=== PATIENT | female | born 1995 | race Caucasian/White ===

== ENCOUNTER 2020-11-10 10:22 | Inpatient (IN) ==
[2020-11-10] MEDS ORDERED: *HR* Nalbuphine 10 MG/ML AMPUL IV PRN (10:39)
[2020-11-10] MEDS ORDERED: Famotidine 20 MG/2 ML VIAL IVP PRN (10:39)
[2020-11-10] MEDS ORDERED: Ondansetron 4 MG/2 ML VIAL IVP PRN (10:39)
[2020-11-10] MEDS ORDERED: Azithromycin 500 MG in 0.9 % Sodium Chloride 250 ML IVPB PRN (10:39)
[2020-11-10] MEDS ORDERED: Metoclopramide 10 MG/2 ML VIAL IVP PRN (10:39)
[2020-11-10] MEDS ORDERED: Naloxone 0.4 MG/ML INJ IVP PRN (10:39)
[2020-11-10] MEDS ORDERED: Lidocaine 1% 20 ML MDV ID PRN (10:39)
[2020-11-10] MEDS ORDERED: Ringers Solution, Lactated 1,000 ML ONE (10:43)
[2020-11-10] MEDS ORDERED: Oxytocin 20 units/ LR 1000 mL 20 UNIT/1,000 ML BAG IVC ONE (10:43)
[2020-11-10] MEDS ORDERED: Ringers Solution, Lactated 1,000 ML IVC SCH (10:45)
[2020-11-10] MEDS ORDERED: Ropivacaine/PF 0.2% 20 ML VIAL EP ONE (10:47)
[2020-11-10] MEDS ORDERED: EPHEDrine 50 MG/ML VIAL IVP PRN (10:47)
[2020-11-10] MEDS ORDERED: *HR* FentaNYL (PF) 100 MCG/2 ML VIAL EP ONE (10:47)
[2020-11-10] MEDS ORDERED: Epidural Premix (fent/bupiv) 110 ML EP SCH (11:00)
[2020-11-10 11:04] LABS: Basophils # 0.1 K/mcL (0.0-0.2); Basophils % 0.5 %; Eosinophils # 0.1 K/mcL (0.0-0.6); Eosinophils % 0.6 %; Hematocrit 37.3 % (35.3-44.9); Hemoglobin 12.8 g/dL (11.5-15.4); Immature Granulocytes % 2.2 % (0-4); Lymphocytes # 1.6 K/mcL (0.6-4.6); Lymphocytes % 12.8 %; Mean Corpuscular HGB Conc 34.3 g/dL (31.6-35.5); Mean Corpuscular Hemoglobin 31.6 pg (28.0-33.3); Mean Corpuscular Volume 92.1 fL (83.0-100.0); Monocytes % 7.9 %; Neutrophils # 9.7 K/mcL (1.6-8.9); Platelet Count 200 K/mcL (140-400); Red Blood Count 4.05 M/mcL (3.82-4.97); Red Cell Distribution Width 12.7 % (11.5-14.5); White Blood Count 12.8 K/mcL (4.3-11.1)
[2020-11-10 11:12] LABS: Amphetamine Screen,Urine Negative ng/mL (Cutoff=1000); Barbiturate Screen,Urine Negative ng/mL (Cutoff=200); Benzodiazepines Screen,Urine Negative ng/mL (Cutoff=200); Cannabinoid Screen,Urine Negative ng/mL (Cutoff = 50); Cocaine Screen,Urine Negative ng/mL (Cutoff= 300); Opiate Screen,Urine Negative ng/mL (Cutoff=300); Phencyclidine Screen,Urine Negative ng/mL (Cutoff=25)
[2020-11-10] MEDS ORDERED: Bupivacaine-MPF 0.25% 10 ML VIAL ONE (11:12)
[2020-11-10] MEDS ORDERED: Ropivacaine/PF 0.2% 20 ML VIAL ONE (11:12)
[2020-11-10] MEDS ORDERED: *HR* FentaNYL (PF) 100 MCG/2 ML VIAL ONE (11:12)
[2020-11-10 11:49] LABS: Influenza A PCR Negative (Negative); Influenza B PCR Negative (Negative); Resp. Syncytial Virus PCR Negative (Negative); SARS-CoV-2 by PCR (In House) Negative (Negative)
[2020-11-10] MEDS ORDERED: Ondansetron ODT 4 MG TAB.RAPDIS SL PRN (17:13)
[2020-11-10] MEDS ORDERED: Lanolin 7 G OINT...G. TP PRN (17:13)
[2020-11-10] MEDS ORDERED: Benzocaine/Menthol 56 GM AEROSOL SPRAY TP PRN (17:13)
[2020-11-10] MEDS ORDERED: Acetaminophen 325 MG TABLET PO SCH (17:13)
[2020-11-10] MEDS ORDERED: Measles/Mumps/Rubella Vacc 0.5 ML VIAL SQ PRN (17:13)
[2020-11-10] MEDS ORDERED: Rho Immune Globulin 1,500 UNIT SYRINGE IM PRN (17:13)
[2020-11-10] MEDS ORDERED: Oxytocin 20 units/ LR 1000 mL 20 UNIT/1,000 ML BAG IVC SCH (17:13)
[2020-11-10] MEDS: Ibuprofen 600 MG TABLET PO SCH (20:52)
[2020-11-11] MEDS: Ibuprofen 600 MG TABLET PO SCH ×2 (03:07→09:31)
[2020-11-11 04:02] VITALS: O2SAT 98
[2020-11-11 06:00] LABS: Basophils # 0.1 K/mcL (0.0-0.2); Basophils % 0.3 %; Eosinophils # 0.1 K/mcL (0.0-0.6); Eosinophils % 0.7 %; Hematocrit 32.8 % (35.3-44.9); Hemoglobin 11.3 g/dL (11.5-15.4); Immature Granulocytes % 1.5 % (0-4); Lymphocytes # 2.5 K/mcL (0.6-4.6); Lymphocytes % 16.6 %; Mean Corpuscular HGB Conc 34.5 g/dL (31.6-35.5); Mean Corpuscular Hemoglobin 31.7 pg (28.0-33.3); Mean Corpuscular Volume 91.9 fL (83.0-100.0); Mean Platelet Volume 11.1 fL (9.4-12.4); Monocytes # 1.2 K/mcL (0.0-1.3); Monocytes % 7.8 %; Platelet Count 163 K/mcL (140-400); Red Blood Count 3.57 M/mcL (3.82-4.97); Red Cell Distribution Width 12.7 % (11.5-14.5); Segmented Neutrophils % 73.1 %
[2020-11-11 08:42] VITALS: BP 104/63; PULSE 83; TEMP 98.2
[2020-11-11] MEDS ORDERED: Prenatal Vit/FA 1 EACH TABLET PO SCH (09:00)
== END 2020-11-11 16:53 | disposition home or self-care (01) | DRG 560 ==
LOC: 1NENULAB → 1NENUOBS 16:59
PROVIDERS: ADMIT Advanced Practice Midwife; ATTEND Advanced Practice Midwife

== ENCOUNTER 2021-02-18 20:17 | Observation (INO) ==
[2021-02-18 21:02] LABS: Bilirubin,Urine Negative (Negative); Blood,Urine Trace (Negative); Clarity,Urine Clear (Clear); Color,Urine Light-Yellow (Yellow); Glucose,Urine (UA) Normal (Normal); Ketones,Urine Trace mg/dL (Negative); Leukocyte Esterase,Urine Negative (Negative); Mucus,Urine Few per lpf (None-Few); Nitrite,Urine Negative (Negative); Protein,Urine Trace mg/dL (Neg-Trace); Specific Gravity,Urine 1.022 (1.010-1.025); Squamous Epithelial Cell,Urine Few per hpf (None-Few); Urobilinogen,Urine Normal (Normal); WBC,Urine 0-3 per hpf (0-3)
[2021-02-18 21:06] LABS: Basophils # 0.1 K/mcL (0.0-0.2); Basophils % 0.6 %; Eosinophils # 0.2 K/mcL (0.0-0.6); Eosinophils % 1.3 %; Hematocrit 41.8 % (35.3-44.9); Hemoglobin 13.9 g/dL (11.5-15.4); Immature Granulocytes % 0.3 % (0-4); Lymphocytes # 1.8 K/mcL (0.6-4.6); Lymphocytes % 14.7 %; Mean Corpuscular HGB Conc 33.3 g/dL (31.6-35.5); Mean Corpuscular Hemoglobin 30.4 pg (28.0-33.3); Mean Corpuscular Volume 91.5 fL (83.0-100.0); Mean Platelet Volume 9.5 fL (9.4-12.4); Monocytes # 0.6 K/mcL (0.0-1.3); Monocytes % 5.1 %; Neutrophils # 9.4 K/mcL (1.6-8.9); Platelet Count 336 K/mcL (140-400); Red Blood Count 4.57 M/mcL (3.82-4.97); Red Cell Distribution Width 12.4 % (11.5-14.5)
[2021-02-18] MEDS ORDERED: Isovue-370 500 ML BOTTLE IVP ONE (21:19)
[2021-02-18] MEDS ORDERED: 0.9 % Sodium Chloride 1,000 ML IV ONE (21:19)
[2021-02-18] MEDS ORDERED: Ondansetron 4 MG/2 ML VIAL IVP ONE (21:19)
[2021-02-18 21:45] LABS: Alanine Aminotransferase 8 Units/L (7-52); Albumin 4.1 g/dL (3.5-5.7); Albumin/Globulin Ratio 1.2 (1.1-2.2); Alkaline Phosphatase 39 Units/L (34-104); Amylase 31 Units/L (29-103); Aspartate Amino Transferase 13 Units/L (13-39); BUN/Creatinine Ratio 15 (6-26); Bilirubin,Direct 0.1 mg/dL (0.0-0.2); Bilirubin,Indirect 0.5 mg/dL (0.0-1.0); Bilirubin,Total 0.6 mg/dL (0.3-1.0); Blood Urea Nitrogen 10 mg/dL (6-20); Carbon Dioxide 23 mEq/L (23-29); Chloride 108 mEq/L (98-107); Globulin 3.3 g/dL (2.4-3.5); Glucose 96 mg/dL (70-105); Lipase 21 Units/L (11-82); Osmolality,Calculated 277 (280-300); Potassium 3.6 mEq/L (3.5-5.1); Sodium 134 mEq/L (136-145); Total Protein 7.4 g/dL (6.4-8.9); eGFR For African Americans > 60 (> 60); eGFR For Non-African Americans > 60 (> 60)
[2021-02-18] MEDS ORDERED: Piperacillin/Tazobactam 3.375 GM in 0.9 % Sodium Chloride Mini Bag 100 ML IVP ONE (22:52)
[2021-02-18] MEDS ORDERED: Morphine Sulfate 2 MG/ML SYRINGE IVP ONE (22:52)
[2021-02-19 00:09] LABS: Influenza A PCR Negative (Negative); Influenza B PCR Negative (Negative); Resp. Syncytial Virus PCR Negative (Negative)
[2021-02-19 00:14] LABS: SARS-CoV-2 by PCR (In House) Negative (Negative)
[2021-02-19] MEDS ORDERED: Ondansetron 4 MG/2 ML VIAL IVP PRN ×2 (00:58→10:36)
[2021-02-19] MEDS ORDERED: *HR* OxyCODONE/APAP 5/325 TABLET PO PRN ×2 (00:58→10:36)
[2021-02-19] MEDS ORDERED: 0.9 % Sodium Chloride 1,000 ML IVC SCH ×2 (00:58→10:36)
[2021-02-19] MEDS: cefOXitin 2,000 MG in 0.9 % Sodium Chloride Mini Bag 100 ML IVPB SCH ×2 (02:01→07:34)
[2021-02-19 03:07] LABS: Basophils # 0.1 K/mcL (0.0-0.2); Basophils % 0.6 %; Eosinophils # 0.1 K/mcL (0.0-0.6); Hematocrit 39.8 % (35.3-44.9); Hemoglobin 12.9 g/dL (11.5-15.4); Immature Granulocytes % 0.2 % (0-4); Lymphocytes # 2.5 K/mcL (0.6-4.6); Mean Corpuscular HGB Conc 32.4 g/dL (31.6-35.5); Mean Corpuscular Hemoglobin 29.6 pg (28.0-33.3); Mean Corpuscular Volume 91.3 fL (83.0-100.0); Mean Platelet Volume 9.6 fL (9.4-12.4); Monocytes # 0.7 K/mcL (0.0-1.3); Monocytes % 6.1 %; Neutrophils # 7.4 K/mcL (1.6-8.9); Platelet Count 272 K/mcL (140-400); Red Blood Count 4.36 M/mcL (3.82-4.97); Red Cell Distribution Width 12.4 % (11.5-14.5); Segmented Neutrophils % 69.1 %; White Blood Count 10.7 K/mcL (4.3-11.1)
[2021-02-19 03:25] LABS: Alanine Aminotransferase 6 Units/L (7-52); Albumin 3.5 g/dL (3.5-5.7); Albumin/Globulin Ratio 1.2 (1.1-2.2); Alkaline Phosphatase 27 Units/L (34-104); Aspartate Amino Transferase 12 Units/L (13-39); BUN/Creatinine Ratio 12 (6-26); Bilirubin,Direct 0.2 mg/dL (0.0-0.2); Bilirubin,Indirect 0.8 mg/dL (0.0-1.0); Blood Urea Nitrogen 8 mg/dL (6-20); Calcium 8.1 mg/dL (8.6-10.3); Carbon Dioxide 19 mEq/L (23-29); Chloride 108 mEq/L (98-107); Glucose 93 mg/dL (70-105); Osmolality,Calculated 282 (280-300); Potassium 3.6 mEq/L (3.5-5.1); Sodium 137 mEq/L (136-145); Total Protein 6.5 g/dL (6.4-8.9); eGFR For African Americans > 60 (> 60); eGFR For Non-African Americans > 60 (> 60)
[2021-02-19] MEDS ORDERED: *HR* HYDROmorphone PF 0.5 MG/0.5 ML SYRINGE IVP PRN (08:19)
[2021-02-19] MEDS ORDERED: *HR* Propofol 200 MG/20 ML VIAL IVP ONE (08:32)
[2021-02-19] MEDS ORDERED: *HR* FentaNYL (PF) 100 MCG/2 ML VIAL ONE (08:32)
[2021-02-19] MEDS ORDERED: *HR* Midazolam HCl 2 MG/2 ML VIAL ONE (08:32)
[2021-02-19] MEDS ORDERED: *HR* Rocuronium Bromide 50 MG/5 ML VIAL ONE ×2 (08:34→09:12)
[2021-02-19] MEDS ORDERED: Lidocaine -MPF 2% 5 ML VIAL ONE (08:34)
[2021-02-19] MEDS ORDERED: Ondansetron 4 MG/2 ML VIAL ONE (08:34)
[2021-02-19] MEDS ORDERED: Acetaminophen IV 1,000 MG/100 ML BAG IVPB ONE (08:55)
[2021-02-19] MEDS ORDERED: cefOXitin 1,000 MG, 0.9 % Sodium Chloride 1,000 ML IR ONE ×2 (09:00→10:36)
[2021-02-19] MEDS ORDERED: Sugammadex Sodium 200 MG/2 ML VIAL IV ONE (09:19)
[2021-02-19] MEDS ORDERED: Ketorolac 30 MG/ML VIAL ONE (09:19)
[2021-02-19 10:51] VITALS: TEMP 97.5
[2021-02-19 13:52] VITALS: BP 112/77; PULSE 93; O2SAT 99
[2021-02-19] MEDS ORDERED: cefOXitin 2,000 MG in 0.9 % Sodium Chloride Mini Bag 100 ML IVPB SCH (16:00)
== END 2021-02-19 16:53 | disposition home or self-care (01) ==
LOC: 3ANU 20:17 → EMEROOARM 20:17 → 3ANU 02-19 00:43
PROVIDERS: ADMIT Surgery; ATTEND Surgery